=== PATIENT | male | born 1965 | race Caucasian/White ===

== ENCOUNTER 2017-06-03 16:27 | Emergency (ER) | payer OTHER ==
[~2017-06-03] VITALS: Ht 198.1 cm; Wt 81.8 kg
[~2017-06-03 16:27] MED LIST: ACTIGALL 300MG300 MG PO; ACTIGALL300 MG PO; ALDACTONE50 MG PO; ALENDRONATE SOD70 M1 PO; ARIXTRA7.5 MG/0.6 SC; ASACOL HD800 MG PO; ASACOL PO; ATOXIMETIN-B1 CAP PO; CALCIUM + D PO; CALCIUM CITRATE1 TA1 PO; CARAFATE1 GM PO; CARDI-OMEGA1000 MG PO; CELLCEPT500 MG PO; CIPRO PO; COLACE 100100 MG/CAP PO; COUMADIN1 MG PO; COUMADIN4 MG PO; D-31000 IU PO; DIPHENOXYLATE/A1 TA2 PO; DOCUSATE100 MG PO; ENDOCET PO; FISH OIL CONCEN1 SGL PO; FLAX SEED OIL1000 MG PO; FOLIC ACID PO; FOLIC ACID1 MG PO; FOSAMAX70 MG PO; FUROCOT20 MG PO; FUROCOT40 MG PO; IMURAN 50MG TAB50 MG PO; IMURAN100 MG PO; K-DUR20 MEQ PO; LASIX 20MG TABL20 MG PO; LASIX 80MG TABL80 MG PO; LEVAQUIN500 MG PO; LEXAPRO 10MG10 MG PO; LEXAPRO10 MG PO; LIALDA PO; LIDODERM5% TP; LOMOTIL 0.025 M1 TAB; LOMOTIL TAB 01 UDTAB PO; LOVENOX100 MG/M1 IJ; LOVENOX100 MG/M1 SC; LOVENOX100 MG/ML SC; MIRALAX 17GM PK1 PKT PO; MULTIPLE VITAMI1 CAP PO; NEBUPENT300 MG IH; NORMAL SALINE FL1 ML IV; OMEPRAZOLE20 MG PO; OSCAL 500 TAB500 MG PO; OXYCODONE/APAP1 TA4 PO; OXYCODONE10 MG PO; OXYCODONE5 M1 PO; OXYCODONE5 MG PO; OXYCONTIN 10MG10 MG PO; OXYCONTIN 20MG20 MG PO; OXYCONTIN ER40 MG PO; OXYCONTIN10 MG PO; OXYCONTIN40 MG PO; PRADAXA 150MG150 MG PO; PREDNISONE 10MG10 MG PO; PREDNISONE 20MG20 MG PO; PREDNISONE 5MG5 MG PO; PREDNISONE10 MG; PREDNISONE10 MG PO; PRILOSEC 20MG20 MG PO; PRILOSEC20 M1 PO; PROGRAF1 MG PO; PROVENTIL0.09 MG/A1 IH; REMERON30 MG PO; SENNA8.6 MG PO; SLOW-MAG 6464 MG/TAB PO; THERAPEUTIC VIT1 CAP PO; TYLENOL 325MG325 MG PO; TYLENOL 500MG500 MG PO; VITAMIN C BUFF500 MG PO; VITAMIN C500 MG PO; VITAMIN D1000 IU PO; VITAMIN E-400200 IU PO; VITAMIN E28000 IU TP; WELLBUTRIN XL150 M1 PO; XARELTO20 MG PO; ZANTAC 150150 MG PO
[2017-06-03 16:33] VITALS: TEMP 97.9
[2017-06-03 17:18] LABS: ALBUMIN 3.9 gm/dL (3.5-5.0); BILIRUBIN,TOTAL 23.9 mg/dL (0.0-1.0); CALCIUM 9.9 mg/dL (8.4-10.2); CREATININE, serum 2.47 mg/dL (0.66-1.25); MAGNESIUM 2.7 mg/dL (1.6-2.3); PHOSPHOROUS 6.1 mg/dL (2.5-4.5); POTASSIUM 4.5 mmol/L (3.4-5.0)
[2017-06-03 17:36] LABS: BASO # 0.1 (0.0-0.2); BASO % 0.5 % (0.0-2.0); EOS # 0.1 (0.0-0.7); GRAN # 7.9 (1.4-6.5); GRAN % 76.7 % (42.2-75.2); HEMOGLOBIN 11.8 g/dl (13.5-18.0); LYMPH # 1.4 (1.2-3.4); LYMPH % 14.1 % (20.0-51.0); MEAN CELL VOLUME 84 fl (80.0-100.0); MEAN CORPUSCULAR HEMOGLOBIN 28 pg (27.0-31.0); MEAN CORPUSCULAR HGB CONC 33 g/dl (33.0-37.0); MONO # 0.7 (0.1-0.6); MONO % 6.9 % (1.7-9.3); PLATELET COUNT 122 K/mm3 (130-400); RED BLOOD COUNT 4.28 M/mm3 (4.20-5.60); REDCELL DISTRIBUTION WIDTH-CV 21.5 % (11.5-14.5); WHITE BLOOD COUNT 10.2 K/mm3 (4.8-10.8)
[2017-06-03 17:48] LABS: INR 1.5 (0.8-3.0); PROTHROMBIN TIME 16.9 SECONDS (9.7-12.8)
[2017-06-03 17:56] LABS: HYALINE CAST >12 /lpf; PH 5 (5-8); SQUAMOUS EPITHELIAL 0-2 /hpf; URINE APPEARANCE Clear; URINE BACTERIA None Seen /hpf; URINE BILIRUBIN Positive (NEGATIVE); URINE BLOOD Negative (NEGATIVE); URINE COLOR Amber; URINE GLUCOSE Negative (NEGATIVE); URINE KETONE Negative (NEGATIVE); URINE RBC 0-2 /hpf; URINE WBC 0-2 /hpf
[2017-06-03 19:24] VITALS: BP 115/65; PULSE 72
== END 2017-06-03 19:40 | disposition short-term general hospital (02) ==
LOC: COL.ER 16:27
PROVIDERS: Emergency Medicine
DX: K72.90 Hepatic failure, unspecified without coma (principal); N19 Unspecified kidney failure; Z86.718 Personal history of other venous thrombosis and embolism; Z87.19 Personal history of other diseases of the digestive system; Z94.4 Liver transplant status
CPT/HCPCS: J7030

== ENCOUNTER → 2017-06-18 | Emergency (ER) | payer OTHER ==
[~2017-06-18] VITALS: Ht 195.6 cm; Wt 77.3 kg
[~2017-06-18] MED LIST changes: +LACTULOSE10 GM/153 PO; +PROTONIX 40MG T40 MG PO; +QUESTRAN LI4 GM/5 GM PO; +SODIUM BICARBO650 MG PO; +XIFAXAN550 MG PO
[2017-06-18 21:21] VITALS: TEMP 98.6
[2017-06-18 21:56] LABS: BASO # 0.1 (0.0-0.2); BASO % 0.4 % (0.0-2.0); EOS # 0.2 (0.0-0.7); EOS % 1.6 % (0-4.0); GRAN # 11.1 (1.4-6.5); GRAN % 77.8 % (42.2-75.2); LYMPH # 1.9 (1.2-3.4); LYMPH % 13.4 % (20.0-51.0); MEAN CELL VOLUME 87 fl (80.0-100.0); MEAN CORPUSCULAR HGB CONC 32 g/dl (33.0-37.0); MONO # 0.9 (0.1-0.6); MONO % 6.3 % (1.7-9.3); PLATELET COUNT 121 K/mm3 (130-400); RED BLOOD COUNT 3.84 M/mm3 (4.20-5.60); REDCELL DISTRIBUTION WIDTH-CV 21.2 % (11.5-14.5); WHITE BLOOD COUNT 14.2 K/mm3 (4.8-10.8)
[2017-06-18 21:59] LABS: HEMATOCRIT 33.2 % (42.0-52.0); HEMOGLOBIN 10.6 g/dl (13.5-18.0); MEAN CORPUSCULAR HEMOGLOBIN 28 pg (27.0-31.0)
[2017-06-18 22:03] LABS: INR 1.3 (0.8-3.0); PROTHROMBIN TIME 14.2 SECONDS (9.7-12.8)
[2017-06-18 22:06] LABS: ADJUSTED CALCIUM 9.7 mg/dL (8.4-10.2); ALANINE AMINOTRANSFERASE 68 U/L (21-72); ALBUMIN 3.4 gm/dL (3.5-5.0); ALKALINE PHOSPHATASE 456 U/L (50-136); ANION GAP 14 mmol/L (7-16); BLOOD UREA NITROGEN 45 mg/dL (9-20); CALCIUM 9.2 mg/dL (8.4-10.2); CARBON DIOXIDE 24 mmol/L (22-30); CHLORIDE 101 mmol/L (98-107); CREATININE, serum 1.76 mg/dL (0.66-1.25); GLUCOSE 126 mg/dL (74-106); LIPASE 115 U/L (23-300); PARTIAL THROMBOPLASTIN TIME 42.8 SECONDS (26.0-37.0); POTASSIUM 4.7 mmol/L (3.4-5.0); SODIUM 138 mmol/L (137-145); TOTAL PROTEIN 8.1 gm/dL (6.4-8.2)
[2017-06-18 22:17] LABS: TROPONIN-I < 0.012 ng/mL (0.000-0.034)
[2017-06-18 23:24] LABS: PH 5 (5-8); SQUAMOUS EPITHELIAL 0-2 /hpf; URINE APPEARANCE Clear; URINE BACTERIA None Seen /hpf; URINE BILIRUBIN Positive (NEGATIVE); URINE BLOOD Negative (NEGATIVE); URINE COLOR Amber; URINE GLUCOSE Negative (NEGATIVE); URINE KETONE Negative (NEGATIVE); URINE RBC 0-2 /hpf; URINE UROBILINOGEN >=4.0 mg/dL (NEGATIVE); URINE WBC 0-2 /hpf
[2017-06-18 23:57] LABS: C-REACTIVE PROTEIN 2.9 mg/dL (0.0-0.9)
[2017-06-19 02:00] VITALS: BP 107/56; PULSE 79
== END ==
LOC: COL.ER 21:17
PROVIDERS: Emergency Medicine
DX: K72.90 Hepatic failure, unspecified without coma (principal); Z94.4 Liver transplant status; Z86.718 Personal history of other venous thrombosis and embolism
CPT/HCPCS: J2543; J7030; J7040; J7050

== ENCOUNTER → 2019-06-28 | Outpatient (CLI) | payer OTHER | LOC: COL.VAS 08:32 | DX: M79.89 Other specified soft tissue disorders (principal); Z86.718 Personal history of other venous thrombosis and embolism ==